=== PATIENT | female | born 1995 | race Caucasian/White ===

== ENCOUNTER → 2020-08-03 | Outpatient (CLI) | payer OTHER ==
--- NOTE | 2020-08-03 08:38 | US ---
EXAMINATION TYPE: Ultrasound OB <= 14 week fetus DATE OF EXAM: 08/03/2020 8:07 AM COMPARISON: NONE CLINICAL HISTORY: 25-year-old female Z36 Confirm Dates and assess Viability. EXAM PERFORMED: Transabdominal (TA) FINDINGS: EXAM MEASUREMENTS: GESTATIONAL AGE / DATING Physician Established: Not yet established Dates by LMP: LMP unknown Dates by First Scan: No previous this is first scan Dates by Current Scan for: (13 weeks/1 days) EDC: 02/07/2021 MATERNAL ANATOMY Uterus: 15 x 7.3 x 9.1 cm Right Ovary: Obscured by bowel gas Left Ovary: 3.6 x 2.1 x 2.1 cm Post CDS / Adnexa: wnl Presence of free fluid: no Presence of corpus luteal cyst: no Presence of subchorionic bleed: no GESTATION / SURVEY CRL: 6.93 cm (13 weeks/1 days) Heart Rate: 171 bpm Rhythm: Normal IUP: Viable IUP Beta HcG (if available): Not available at this time Oval hypoechoic areas along the anterior uterine fundus measuring 4.7 cm. amnion shows near-com plete fusion with the chorion at this time. IMPRESSION: 1. Single live intrauterine with gestational age of 13 weeks 1 day by crown-rump length. 2. Suspect underlying fundal fibroids measuring up to 4.7 cm in size. 3. heart rate upper limits of normal at 171 BPM. Short interval follow-up can be considered. 4. Otherwise, complete survey recommended at 18-20 weeks.
[2020-08-03 09:25] LABS: HCT 37.6 % (34.0-46.0); HGB 12.9 gm/dL (11.4-16.0); MCH 31.4 pg (25.0-35.0); MCHC 34.3 g/dL (31.0-37.0); MCV 91.3 fL (80.0-100.0); Mean Platelet Volume 8.5; Platelet Count 233 k/uL (150-450); RBC 4.12 m/uL (3.80-5.40); RDW 11.8 % (11.5-15.5); WBC 8.5 k/uL (3.8-10.6)
[2020-08-03 09:40] LABS: African American GFR (CKD) >90 (>60 ml/min/1.73 sqM); Glucose 87 mg/dL (74-99); Non-African American GFR(CKD) >90 (>60 ml/min/1.73 sqM)
[2020-08-03 16:03] LABS: Hepatitis B Surface Antigen Non-Reactive (Non-Reactive)
[2020-08-03 19:11] LABS: HIV 2 AB Non-Reactive (Non-Reactive); HIV AB P24 Non-Reactive (Non-Reactive); HIV P24 AG Non-Reactive (Non-Reactive)
== END | disposition home or self-care (01) ==
LOC: RADUSWWP 07:51
PROVIDERS: ATTEND Obstetrics & Gynecology
DX: Z36.87 Encounter for antenatal screening for uncertain dates (principal); Z34.01 Encounter for supervision of normal first pregnancy, first trimester; Z3A.13 13 weeks gestation of pregnancy
CPT/HCPCS: 76801; 82565; 82947; 85027; 86762; 86780; 86850; 86900; 86901; 87340; 87390

== ENCOUNTER 2021-02-03 15:56 | Inpatient (IN) | payer OTHER ==
[2021-02-03] MEDS ORDERED: DINOPROSTONE 10 MG INSERT.ER VAGINAL ONE (16:06)
--- NOTE | 2021-02-03 16:59 | P.HPOB ---
History of Present Illness H&P Date: 02/03/21 Chief Complaint: Induction for SGA This patient is a pleasant 25-year-old 1 para 0 female estimated date of confinement 02/08/2021 estimated gestational age 39-2/7 weeks who presents to labor and delivery for two-stage induction of labor secondary to small for gestational age. Patient had ultrasound done at 35 weeks which showed her to be at the 22nd percentile with normal EDDIE. Patient had a repeat ultrasound which showed her to have some interval growth lagging 3 weeks behind therefore I recommended proceed with delivery at this time. Patient's been followed nonstress tests which been reassuring. is otherwise been uncomplicated. Review of Systems Genitourinary: Reports Menstruation: Reports amenorrhea Past Medical History Past Medical History: No Reported History History of Any Multi-Drug Resistant Organisms: None Reported Past Surgical History: No Surgical Hx Reported Past Anesthesia/Blood Transfusion Reactions: No Reported Reaction Past Psychological History: No Psychological Hx Reported Smoking Status: Never smoker Past Alcohol Use History: None Reported Past Drug Use History: None Reported - Past Family History Father History Unknown: Yes Medications and Allergies Home Medications Medication Instructions Recorded Confirmed Type No Known Home Medications 02/03/21 02/03/21 History Allergies Allergy/AdvReac Type Severity Reaction Status Date / Time methylphenidate Allergy Anaphylaxis Verified 02/03/21 16:06 [From [facility]] Exam Vital Signs Temp Pulse Resp BP 02/03/21 16:33 97.0 F L 92 16 114/64 Intake and Output 02/03/21 02/03/21 02/03/21 06:59 14:59 22:59 Other: Weight 84.368 kg - OBG Physical Exam Abdomen: bowel sounds normal, no diffuse tenderness, no bruit present, no guarding noted, no hepatomegaly, no splenomegaly, no mass Vulva: both: normal Vagina: normal moisture, no discharge Cervix: no lesion (Cervix is closed and thick and uneffaced), no discharge Uterus: enlarged (Fundal height 38 cm) Results blood work shows she is B+, rubella immune, RPR nonreactive, hepatitis B negative, HIV is nonreactive, quad screen was negative, group B strep was negative, Glucola was normal, growth ultrasounds as above. Estimated weight is 66-1/2 pounds. Assessment and Plan Assessment: This is a pleasant 25-year-old 1 para 0 female 39-2/7 weeks gestation with small for gestational age fetus who presents for induction. Patient does have an unfavorable cervix and therefore we'll proceed with Cervidil placement and Pitocin induction tomorrow. (1) Small for gestational age fetus Current Visit: Yes Status: Acute Code(s): EMQ5740 - SNOMED Code(s): 637901374 (2) Elective induction of labor planned Current Visit: Yes Status: Acute Code(s): [id number] - SNOMED Code(s): 003636691
[2021-02-04] MEDS ORDERED: OXYTOCIN 10 UNIT/ML 1 ML VIAL IM PRN (04:32)
[2021-02-04] MEDS ORDERED: OXYTOCIN 30 UNITS/500 ML NS 30 UNIT in SALINE 1 500ML.BAG IV SCH ×2 (04:32→17:00)
[2021-02-04] MEDS ORDERED: LIDOCAINE 0.5% (PF) 5 MG/ML (50 ML SDV) SQ PRN (04:32)
[2021-02-04] MEDS ORDERED: CARBOPROST TROMETHAMINE 250 MCG/ML 1 ML AMP IM PRN (04:32)
[2021-02-04] MEDS ORDERED: METHYLERGONOVINE 0.2 MG/ML 1 ML AMP IM PRN (04:32)
[2021-02-04] MEDS ORDERED: TERBUTALINE 1 MG/ML VIAL SQ PRN (04:32)
[2021-02-04] MEDS: LACTATED RINGERS 1,000 ML IV SCH ×3 (05:50→13:30)
[2021-02-04 06:15] LABS: Basophils % (A) 0 %; Eosinophils # (A) 0.1 k/uL (0-0.7); Eosinophils % (A) 2 %; HCT 37.9 % (34.0-46.0); HGB 13.2 gm/dL (11.4-16.0); Lymphocytes # (A) 1.9 k/uL (1.0-4.8); Lymphocytes % (A) 22 %; MCH 31.5 pg (25.0-35.0); MCHC 34.7 g/dL (31.0-37.0); MCV 90.7 fL (80.0-100.0); Mean Platelet Volume 9.7; Monocytes # (A) 0.7 k/uL (0-1.0); Monocytes % (A) 8 %; Neutrophils # (A) 5.9 k/uL (1.3-7.7); Neutrophils % (A) 67 %; Platelet Count 193 k/uL (150-450); RBC 4.18 m/uL (3.80-5.40); RDW 13.4 % (11.5-15.5); WBC 8.7 k/uL (3.8-10.6)
--- NOTE | 2021-02-04 06:22 | P.PN ---
Progress Note - Text Progress Note Date: 02/04/21 Cervidil was removed this morning cervix is fingertip and thick but artificial rupture membranes is performed for clear fluid. We'll proceed with Pitocin induction of labor. heart tones category 1.
[2021-02-04] MEDS: BUTORPHANOL 1 MG/ML 1 ML VIAL IV PRN ×2 (09:03→11:16)
[2021-02-04] MEDS ORDERED: ROPIVACAINE 100 MG, fentaNYL (PF). 200 MCG in SODIUM CHLORIDE 0.9% 76 ML EPIDURAL ONE (13:45)
[2021-02-04] MEDS ORDERED: SIMETHICONE 80 MG CHEWABLE PO PRN (16:50)
[2021-02-04] MEDS ORDERED: LANOLIN CREAM 5 GM TUBE TOPICAL PRN (16:50)
[2021-02-04] MEDS ORDERED: ZOLPIDEM 5 MG TAB PO PRN (16:50)
[2021-02-04] MEDS ORDERED: diphenhydrAMINE 50 MG/ML 1 ML VIAL IVP PRN (16:50)
[2021-02-04] MEDS ORDERED: diphenhydrAMINE 25 MG CAP PO PRN (16:50)
[2021-02-04] MEDS ORDERED: ACETAMINOPHEN TAB 325 MG TAB PO PRN (16:50)
[2021-02-04] MEDS ORDERED: bisacodyL 10 MG SUPP RECTAL PRN (16:50)
[2021-02-04] MEDS ORDERED: HYDROCORTISONE 2.5% RECTAL CREAM 30 GM TUBE RECTAL PRN (16:50)
[2021-02-04] MEDS ORDERED: BENZOCAINE/MENTHOL SPRAY 1 GM/SPRAY AEROSOL TOPICAL PRN (16:50)
--- NOTE | 2021-02-04 17:00 | P.PROBDLV ---
Vaginal Delivery Note - . Vaginal Delivery Note: Normal vaginal delivery viable female Apgars 8 and 9 delivery time is 1627 hrs. Please see dictated H&P for intimate details of this patient's admission. Brief summary this is a pleasant 25-year-old 1 para 0 female estimated gestational age 39 and 2/7 weeks gestation who is admitted to labor and delivery last evening for two-stage induction of labor secondary to small for gestational age and unfavorable cervix. Patient has Cervidil placed and this morning her cervix is fingertip and thick. Has artificial rupture membranes for clear fluid at that time. heart tones are category 1. Labor is induced with Pitocin at this time per protocol. Patient's labor progresses and she received 2 doses of Stadol and then an epidural for pain control. Patient thereafter progresses quite quickly gets to complete. She pushes for approximately 25 minutes pushes the head to the perineum. Posterior perineum is supported and we have controlled delivery of the 's head over the intact perineum. Mouth and nares are bulb suctioned. There is no evidence of a nuchal cord. With gentle downward traction we then have delivery the anterior and posterior shoulder and rest this infant's body. This is a vigorous viable female infant Apgars are 8 and 9 delivery time was 1627 hrs. After delivery of the the infant is laid on the mother's abdomen. The umbilical cord is allowed to quit pulsating is then doubly clamped and cut appears to be trivascular. Placenta is then spontaneously delivered intact. Estimated blood loss approximately 250 mL. Inspection of perineum shows a first-degree laceration was repaired with 3-0 Vicryl in the usual fashion excellent reapproximation is noted. All counts correct 3. There are no complications. Infant and mother stable delivery room.
[2021-02-04 23:36] VITALS: RESP 16
[2021-02-05] MEDS: IBUPROFEN 600 MG TAB PO PRN ×3 (02:26→19:55)
--- NOTE | 2021-02-05 05:47 | P.PNOBGVD ---
Subjective - Subjective Patient reports: Reports appetite normal, Reports voiding normally, Reports pain well controlled, Reports ambulating normally : doing well Objective - Latest Vital Signs Latest vital signs: Vital Signs Temp Pulse Resp BP 02/05/21 04:00 97.8 F 90 16 106/65 02/04/21 23:00 98.3 F 99 16 94/65 02/04/21 18:45 98.1 F 98 18 116/65 02/04/21 18:15 98.3 F 98 18 115/55 02/04/21 17:45 100 119/56 02/04/21 17:30 97.8 F 100 18 112/58 02/04/21 17:15 107 H 115/61 02/04/21 17:00 98.3 F 98 18 117/58 02/04/21 16:45 98.5 F 73 18 116/64 Intake and Output 02/04/21 02/04/21 02/05/21 14:59 22:59 06:59 Intake Total 10.25 Output Total 400 Balance -389.75 Intake: Intake, IV Titration 10.25 Amount Oxytocin 30 Units/500 ml 10.25 Ns 30 unit In Saline 1 500ml.bag @ Per Protocol IV .Q0M CAROLYN Rx#:[id number] Output: Estimated Blood Loss 400 Other: # Voids 1 1 - Exam Lungs: bilateral: normal Chest: Normal S1, Normal S2 Extremities: Present: normal Abdomen: Present: normal appearance, soft Uterus: Present: normal, firm Assessment and Plan Assessment: day #1. Patient is resting without complaints and most likely will go home later today. Vital signs are stable and she is afebrile. Uterus is firm nontender and she is having normal lochia. Impression this is a normal course. Plan is to continue routine care discharge home later today. (1) Small for gestational age fetus Current Visit: Yes Status: Acute Code(s): CSL8982 - SNOMED Code(s): 908440981 (2) Elective induction of labor planned Current Visit: Yes Status: Acute Code(s): CUV4603 - SNOMED Code(s): 162962770
--- NOTE | 2021-02-05 05:52 | P.DS ---
Providers Date of admission: 02/03/21 15:56 Expected date of discharge: 02/05/21 Attending physician: Yg Anderson Primary care physician: Stated None - Discharge Diagnosis(es) (1) Small for gestational age fetus Current Visit: Yes Status: Acute (2) Elective induction of labor planned Current Visit: Yes Status: Acute Hospital Course: Please see dictated H&P for intimate details of this patient's admission. Brief summary this pleasant 25-year-old 1 para 0 female 39-2/7 weeks gestation admitted to labor and delivery for two-stage induction of labor secondary to small for gestational age. Patient is induction of labor and was on have a vaginal delivery viable female infant. Please see dictated delivery note. On day #1 patient without complaints she felt stable for discharge home follow up with me in 6 weeks. Procedures: Two-stage induction of labor and normal vaginal delivery Patient Condition at Discharge: Good Plan - Discharge Summary New Discharge Prescriptions: New Ibuprofen [Motrin] 600 mg PO Q6H PRN #30 tab PRN Reason: Pain Discharge Medication List Ibuprofen [Motrin] 600 mg PO Q6H PRN #30 tab 02/05/21 [Rx] Follow up Appointment(s)/Referral(s): Yg Anderson MD [STAFF PHYSICIAN] - 03/16/21 10:15 am Patient Instructions/Handouts: Vaginal Delivery (DC) Activity/Diet/Wound Care/Special Instructions: No intercourse or anything per vagina for 6 weeks. Please call if any fever, chills, excessive vaginal bleeding, and/or abdominal pain. Discharge Disposition: HOME SELF-CARE
[2021-02-05] MEDS: SENNOSIDES-DOCUSATE SODIUM 1 EACH TAB PO PRN ×2 (12:03→19:55)
[2021-02-06] MEDS: IBUPROFEN 600 MG TAB PO PRN ×2 (01:53→08:13)
[2021-02-06 08:24] VITALS: BP 111/73; PULSE 75; TEMP 98.4
== END 2021-02-06 10:40 | disposition home or self-care (01) | DRG 807 ==
LOC: 4FBP 15:56
PROVIDERS: ADMIT Obstetrics & Gynecology; ATTEND Obstetrics & Gynecology
PROC: 10E0XZZ Delivery of Products of Conception, External Approach (ICD-10-PCS; principal; 2021-02-04)
PROC: 0HQ9XZZ Repair Perineum Skin, External Approach (ICD-10-PCS; 2021-02-04)
DX: O36.5930 Maternal care for other known or suspected poor fetal growth, third trimester, not applicable or unspecified (principal); Z37.0 Single live birth; O70.0 First degree perineal laceration during delivery; Z3A.39 39 weeks gestation of pregnancy
CPT/HCPCS: 85025; 86850; 86900; 86901; 88307

== ENCOUNTER 2021-03-11 06:28 | Emergency (ER) | payer OTHER ==
[2021-03-11] MEDS ORDERED: ONDANSETRON 4 MG/2 ML VIAL IVP STA (06:57)
[2021-03-11] MEDS ORDERED: SODIUM CHLORIDE 0.9% 1,000 ML IV STA (06:57)
[2021-03-11] MEDS ORDERED: ACETAMINOPHEN TAB 500 MG TAB PO STA (06:58)
[2021-03-11] MEDS ORDERED: PANTOPRAZOLE 40 MG/10 ML VIAL IVP STA (06:58)
--- NOTE | 2021-03-11 07:19 | ED ---
Abdominal Pain HPI - General Chief Complaint: Abdominal Pain Stated Complaint: abd pain Time Seen by Provider: 03/11/21 06:51 Source: patient Mode of arrival: ambulatory Limitations: no limitations - History of Present Illness Initial Comments: 25-year-old female presents to emergency Department with a chief complaint of abdominal pain. Patient reports symptoms began yesterday located right upper quadrant region with some radiation across the abdomen. Patient states she is concerned for gallbladder. She has not had an ultrasound on prior to this. States the pain is usually postprandial. This is benign going for quite sometime now. Patient reports it feels like another "gallbladder attack". She denies any urinary or vaginal symptoms. Denies any diarrhea but does report one episode of vomiting. - Related Data Previous Rx's Medication Instructions Recorded Ibuprofen [Motrin] 600 mg PO Q6H PRN #30 tab 02/05/21 Allergies Allergy/AdvReac Type Severity Reaction Status Date / Time methylphenidate Allergy Anaphylaxis Verified 03/11/21 06:47 [From [facility]] Review of Systems ROS Statement: Those systems with pertinent positive or pertinent negative responses have been documented in the HPI. ROS Other: All systems not noted in ROS Statement are negative. Past Medical History Past Medical History: No Reported History History of Any Multi-Drug Resistant Organisms: None Reported Past Surgical History: No Surgical Hx Reported Past Anesthesia/Blood Transfusion Reactions: No Reported Reaction Past Psychological History: No Psychological Hx Reported Smoking Status: Never smoker Past Alcohol Use History: None Reported Past Drug Use History: None Reported - Past Family History Father History Unknown: Yes General Exam Limitations: no limitations General appearance: alert, in no apparent distress Head exam: Present: atraumatic, normocephalic, normal inspection Eye exam: Present: normal appearance, PERRL, EOMI Pupils: Present: normal accommodation ENT exam: Present: normal exam, normal oropharynx, mucous membranes moist Neck exam: Present: normal inspection, full ROM. Absent: tenderness, lymphadenopathy Respiratory exam: Present: normal lung sounds bilaterally. Absent: respiratory distress, wheezes, rales, rhonchi, stridor, chest wall tenderness, accessory muscle use Cardiovascular Exam: Present: regular rate, normal rhythm, normal heart sounds. Absent: systolic murmur, diastolic murmur GI/Abdominal exam: Present: soft, tenderness (Right upper quadrant tenderness), normal bowel sounds. Absent: distended, guarding, rebound, rigid Extremities exam: Present: normal inspection, full ROM, normal capillary refill. Absent: tenderness, pedal edema, joint swelling Back exam: Present: normal inspection, full ROM. Absent: tenderness, CVA tenderness (R) Neurological exam: Present: alert, oriented X3 Psychiatric exam: Present: normal affect, normal mood Skin exam: Present: warm, dry, intact, normal color Course Vital Signs 03/11/21 03/11/21 06:43 08:09 Temperature 97.7 F 98 F Pulse Rate 77 68 Respiratory 18 16 Rate Blood Pressure 124/84 133/85 O2 Sat by Pulse 99 100 Oximetry Medical Decision Making - Medical Decision Making 25-year-old male presents to emergency department with chief complaint of abdominal pain. On physical examination, right upper quadrant tenderness. Ult rasound shows no acute cholecystitis, however there is gallbladder distention with small gallstones. I did recommend admission with a surgical consult for the patient, she declined. States she would rather follow up with outpatient basis. Rest of the laboratory work is unremarkable. Return parameters were thoroughly discussed the patient was understanding and agreeable. Case discussed with Dr. Tyson. - Lab Data Result diagrams: 03/11/21 07:27 03/11/21 07:27 Lab Results 03/11/21 03/11/21 Range/Units 07:27 07:27 WBC 11.1 H (3.8-10.6) k/uL RBC 4.56 (3.80-5.40) m/uL Hgb 14.1 (11.4-16.0) gm/dL Hct 41.3 (34.0-46.0) % MCV 90.6 (80.0-100.0) fL MCH 30.9 (25.0-35.0) pg MCHC 34.1 (31.0-37.0) g/dL RDW 12.7 (11.5-15.5) % Plt Count 228 (150-450) k/uL MPV 7.9 Neutrophils % 73 % Lymphocytes % 18 % Monocytes % 5 % Eosinophils % 3 % Basophils % 1 % Neutrophils # 8.0 H (1.3-7.7) k/uL Lymphocytes # 1.9 (1.0-4.8) k/uL Monocytes # 0.6 (0-1.0) k/uL Eosinophils # 0.3 (0-0.7) k/uL Basophils # 0.1 (0-0.2) k/uL Sodium 141 (137-145) mmol/L Potassium 4.3 (3.5-5.1) mmol/L Chloride 106 (98-107) mmol/L Carbon Dioxide 31 H (22-30) mmol/L Anion Gap 4 mmol/L BUN 17 (7-17) mg/dL Creatinine 0.74 (0.52-1.04) mg/dL Est GFR (CKD-EPI)AfAm >90 (>60 ml/min/1.73 sqM) Est GFR (CKD-EPI)NonAf >90 (>60 ml/min/1.73 sqM) Glucose 105 H (74-99) mg/dL Calcium 9.7 (8.4-10.2) mg/dL Total Bilirubin 0.4 (0.2-1.3) mg/dL AST 36 (14-36) U/L ALT 27 (4-34) U/L Alkaline Phosphatase 98 (38-126) U/L Total Protein 7.0 (6.3-8.2) g/dL Albumin 4.3 (3.5-5.0) g/dL Lipase 130 (23-300) U/L Disposition Clinical Impression: Biliary colic, Nausea & vomiting Disposition: HOME SELF-CARE Condition: Stable Instructions (If sedation given, give patient instructions): Biliary Colic (ED), Laparoscopic Cholecystectomy (DC) Additional Instructions: Follow-up with a surgeon. Return to emergency department if symptoms worsen. Is patient prescribed a controlled substance at d/c from ED?: No Referrals: Marissa Hinkle DO [Primary Care Provider] - 1-2 days Simone Hernandez MD [Medical Doctor] - 1-2 days Time of Disposition: 08:35
[2021-03-11 07:39] LABS: Basophils # (A) 0.1 k/uL (0-0.2); Basophils % (A) 1 %; Eosinophils # (A) 0.3 k/uL (0-0.7); Eosinophils % (A) 3 %; HCT 41.3 % (34.0-46.0); HGB 14.1 gm/dL (11.4-16.0); Lymphocytes # (A) 1.9 k/uL (1.0-4.8); Lymphocytes % (A) 18 %; MCH 30.9 pg (25.0-35.0); MCHC 34.1 g/dL (31.0-37.0); MCV 90.6 fL (80.0-100.0); Mean Platelet Volume 7.9; Monocytes # (A) 0.6 k/uL (0-1.0); Monocytes % (A) 5 %; Neutrophils % (A) 73 %; Platelet Count 228 k/uL (150-450); RBC 4.56 m/uL (3.80-5.40); RDW 12.7 % (11.5-15.5); WBC 11.1 k/uL (3.8-10.6)
[2021-03-11 07:57] LABS: ALT 27 U/L (4-34); AST 36 U/L (14-36); African American GFR (CKD) >90 (>60 ml/min/1.73 sqM); Albumin 4.3 g/dL (3.5-5.0); Alkaline Phosphatase 98 U/L (38-126); Anion Gap 4 mmol/L; Blood Urea Nitrogen 17 mg/dL (7-17); Calcium 9.7 mg/dL (8.4-10.2); Carbon Dioxide 31 mmol/L (22-30); Chloride 106 mmol/L (98-107); Glucose 105 mg/dL (74-99); Lipase 130 U/L (23-300); Non-African American GFR(CKD) >90 (>60 ml/min/1.73 sqM); Potassium 4.3 mmol/L (3.5-5.1); Sodium 141 mmol/L (137-145); Total Bilirubin 0.4 mg/dL (0.2-1.3)
[2021-03-11] MEDS ORDERED: KETOROLAC 15 MG/ML 1 ML VIAL IVP STA (07:57)
[2021-03-11 08:11] VITALS: TEMP 98
--- NOTE | 2021-03-11 08:13 | US ---
EXAMINATION TYPE: US gallbladder DATE OF EXAM: 03/11/2021 COMPARISON: NONE CLINICAL HISTORY: rug tenderness. 1 month . C/O RUQ pain postprandially. Last ate 3:30 this am. EXAM MEASUREMENTS: Liver Length: 17.5 cm Gallbladder Wall: 0.2 cm CBD: 0.1 cm Right Kidney: 12.0 x 5.8 x 4.2 cm Pancreas: The tail of the pancreas is not well visualized due to overlying bowel gas. Liver: wnl Gallbladder: Enlarged GB with Multiple small, gravel-like stones. GB = 10.8 x 4.5 x 4.2 cm Evidence for sonographic Urbina's sign: Yes CBD: wnl Right Kidney: No hydronephrosis or masses seen IMPRESSION: 1. Distended gallbladder with multiple small gallstones. No gallbladder wall thickening. No perichole cystic fluid. Urbina sign is positive. Surgical evaluation is recommended. 2. The tail of the pancreas is poorly visualized.
[2021-03-11 08:34] LABS: Appearance,Urine Clear (Clear); Bilirubin,Urine Negative (Negative); Blood,Urine Moderate (Negative); Color,Urine Yellow; Glucose,Urine (UA) Negative (Negative); Ketones,Urine Negative (Negative); Leukocyte Esterase,Urine Large (Negative); Mucus,Urine Occasional /hpf; Nitrite,Urine Negative (Negative); PH, Urine 5.5 (5.0-8.0); Protein,Urine Negative (Negative); RBC,Urine 3 /hpf (0-5); Specific Gravity,Urine 1.026 (1.001-1.035); Squamous Epithelial Cell,Urine 5 /hpf (0-4); Urobilinogen,Urine <2.0 mg/dL (<2.0); WBC,Urine 22 /hpf (0-5)
[2021-03-11 08:47] VITALS: BP 121/78; PULSE 61; RESP 18
== END 2021-03-11 08:46 | disposition home or self-care (01) ==
LOC: EC 06:28
DX: K80.50 Calculus of bile duct without cholangitis or cholecystitis without obstruction (principal)
CPT/HCPCS: 36415; 80053; 83690; 85025; 81001; 81025; 87086; 76705; 99284; 96374; 96375 ×2; 96361; J2405; J1885; C9113

== ENCOUNTER 2021-03-23 08:43 | Day surgery (SDC) | payer OTHER ==
[2021-03-19 12:01] VITALS: BMI 31.2
[~2021-03-23 08:43] MED LIST: ACETAMINOPHEN TAB 500 MG TAB PO PRN; DEXAMETHASONE SOD PHOSPHATE 4 MG/ML 1 ML VIAL IV ONE; HEPARIN SODIUM,PORCINE/PF 5,000 UNIT/0.5 ML SYRINGE SQ PRN; HYDROmorphone 0.5 MG/0.5 ML SYRINGE IVP PRN; LACTATED RINGERS 1,000 ML IV SCH; MIDAZOLAM 2 MG/2 ML VIAL IV PRN; ONDANSETRON 4 MG/2 ML VIAL IVP ONE; SCOPOLAMINE 1.5MG/72HR PATCH TRANSDERM ONE
[2021-03-23 09:24] VITALS: RESP 16
[2021-03-23] MEDS ORDERED: LIDOCAINE 1% (10MG/ML) FOR IV START INTRADERMA ONE (09:36)
--- NOTE | 2021-03-23 10:23 | P.GSHP ---
History of Present Illness H&P Date: 03/23/21 Chief Complaint: right upper quadrant pain t this is a 25-year-old female dissected with rectal pain. Her recent ultrasound shows evidence of cholelithiasis. She presents today for lapa laparoscopic cholecystectomy Past Medical History Past Medical History: No Reported History Additional Past Medical History / Comment(s): GALLBLADDER DISORDER History of Any Multi-Drug Resistant Organisms: None Reported Past Surgical History: No Surgical Hx Reported Past Anesthesia/Blood Transfusion Reactions: No Reported Reaction Smoking Status: Never smoker - Past Family History Father History Unknown: Yes Family Medical History: No Reported History Medications and Allergies Home Medications Medication Instructions Recorded Confirmed Type No Known Home Medications 03/19/21 03/23/21 History Allergies Allergy/AdvReac Type Severity Reaction Status Date / Time methylphenidate Allergy Anaphylaxis Verified 03/23/21 09:25 [From [facility]] Surgical - Exam Vital Signs Temp Pulse Resp BP Pulse Ox 97.8 F 62 16 111/55 98 03/23/21 09:23 03/23/21 09:23 03/23/21 09:23 03/23/21 09:23 03/23/21 09:23 - General well developed, well nourished, no distress - Eyes PERRL - ENT normal pinna - Neck no masses - Respiratory normal expansion - Cardiovascular Rhythm: regular - Abdomen Abdomen: soft, non tender Assessment and Plan Plan: cholelithiasis Chronic cholecystitis We'll perform laparoscopic cholecystectomy
[2021-03-23] MEDS ORDERED: BUPIVACAINE (PF) 0.25% 30 ML VIAL SQ ONE ×2 (10:35→10:55)
[2021-03-23] MEDS ORDERED: LIDOCAINE 1% INJ 10MG/ML (20 ML MDV) ONE (10:36)
[2021-03-23] MEDS ORDERED: PROPOFOL 10 MG/ML 20 ML VIAL IV ONE (10:36)
[2021-03-23] MEDS ORDERED: GLYCOPYRROLATE 0.2 MG/ML 2 ML VIAL ONE (10:36)
[2021-03-23] MEDS ORDERED: KETOROLAC 15 MG/ML 1 ML VIAL ONE (10:36)
[2021-03-23] MEDS ORDERED: MIDAZOLAM 2 MG/2 ML VIAL ONE (10:36)
[2021-03-23] MEDS ORDERED: NEOSTIGMINE 1 MG/ML 10 ML VIAL ONE (10:36)
[2021-03-23] MEDS ORDERED: ROCURONIUM 10 MG/ML (5 ML VIAL) IV ONE (10:36)
[2021-03-23] MEDS ORDERED: HYDROmorphone (PF) 1 MG/ML ONE (10:36)
[2021-03-23] MEDS ORDERED: fentaNYL (PF) 50 MCG/ML 2 ML AMP ONE (10:36)
[2021-03-23] MEDS ORDERED: SUCCINYLCHOLINE CHLORIDE 100 MG/5 ML SYR IV ONE (10:36)
--- NOTE | 2021-03-23 11:17 | P.OP ---
Date of Procedure: 03/23/21 Preoperative Diagnosis: cholelithiasis Postoperative Diagnosis: cholelithiasis Procedure(s) Performed: laparoscopic cholecystectomy Anesthesia: TODD Surgeon: Alberto Javed Estimated Blood Loss (ml): 5 Pathology: other (gallbladder) Condition: stable Disposition: PACU Description of Procedure: The patient was placed on the operating table. The patient received a general endotracheal tube anesthesia. The patients abdomen was prepped and draped in the usual sterile fashion. Through an infraumbilical stab incision, the fascia of the anterior abdominal wall was grasped with a pair of Kochers and then the Veress needle was placed in the peritoneal cavity. Position of the Veress needle was confirmed with positive drop test. The abdomen was then insufflated. After adequate insufflation, the 10 mm trocar was placed in the peritoneal cavity. Following this the laparoscope was placed in the peritoneal cavity. The patient was placed in the head-up, right side up position and then a 5 mm trocar was placed in the right lateral and right subcostal position under direct visualization. A 8 mm trocar was placed in the epigastric position. The gallbladder was grasped in the fundus and infundibulum. Traction on the gallbladder was placed in the lateral and the cephalad positions. The triangle of Calot was visualized.. The cystic duct was bluntly dissected until the union of the cystic duct and common bile duct was seen. A critical view of safety was achieved. The cystic duct was then divided and sealed with the Harmonic scissors. A PDS Endoloop was then placed throughout the cystic duct stump. The cystic artery divided and sealed with the Harmonic scissors. The gallbladder was then removed from the liver bed using Harmonic scissors. The gallbladder was then extracted through the epigastric port site. Operative field was checked for any bleeding spots and Harmonic scissors was used to coagulate the liver bed. The abdomen was irrigated. The trocars were removed. The skin was closed using interrupted 3-0 Vicryl suture. Dermabond dressing were applied. The patient tolerated the procedure well.
[2021-03-23 11:26] VITALS: TEMP 97.6
[2021-03-23] MEDS ORDERED: LACTATED RINGERS 1,000 ML IV ONE (12:04)
[2021-03-23] MEDS ORDERED: ONDANSETRON 4 MG/2 ML VIAL ONE (12:40)
[2021-03-23] MEDS ORDERED: ONDANSETRON 4 MG/2 ML VIAL IVP ONE (12:45)
[2021-03-23] MEDS ORDERED: SCOPOLAMINE 1.5MG/72HR PATCH TRANSDERM ONE (13:35)
[2021-03-23] MEDS ORDERED: PROMETHAZINE INJ 25 MG/ML 1 ML VIAL IVPB ONE (13:42)
[2021-03-23 14:25] VITALS: BP 117/77; PULSE 67
== END 2021-03-23 14:29 | disposition home or self-care (01) ==
LOC: OR 08:43
PROVIDERS: ATTEND Surgery
DX: K81.1 Chronic cholecystitis (principal); Z88.8 Allergy status to other drugs, medicaments and biological substances
CPT/HCPCS: 81025; 88304; 47562; J2250; J1100; J2550; J2710; J0690; J2405; J2001; J3010; J1170 ×2; J1885; J0330; J2704; J1644

== ENCOUNTER → 2021-09-29 | Outpatient (CLI) | payer OTHER ==
--- NOTE | 2021-09-29 09:45 | US ---
EXAMINATION TYPE: Transabdominal DATE OF EXAM: 09/29/2021 9:07 AM COMPARISON: NONE CLINICAL HISTORY: Z36.89 ENCOUNTER FOR OTHER SPECIFIED SCR. Patient presents to confirm lexi es in early . EXAM PERFORMED: Transabdominal (TA) EXAM MEASUREMENTS: GESTATIONAL AGE / DATING Physician Established: (13 weeks/4 days) EDC: 04/02/2022 Dates by LMP: LMP unknown Dates by First Scan: No previous this is first scan Dates by Current Scan for: (12 weeks/1 days) EDC: 04/12/2022 MATERNAL ANATOMY Uterus: 15.9 x 9.3 x 9.1 Right Ovary: 2.9 x 2.5 x 2.4 Left Ovary: 3.3 x 3.1 x 3.2 Post CDS / Adnexa: WNL Presence of free fluid: No Presence of corpus luteal cyst: Not seen Presence of subchorionic bleed: No evidence of subchorionic bleed today GESTATION / SURVEY CRL: 5.41 cm (12 weeks/1 days) MSD: Visualized Yolk Sac (normal less than 6mm): Not seen; placenta noted. Heart Rate: 167 bpm Rhythm: Normal IUP: Viable IUP Age Appropriate Anatomy Cord Insertion: Visualized Limbs: Visualized Calvarium: Visualized Date of LMP: Unknown Beta HcG (if available): Not available at this time IMPRESSION: Single viable intrauterine noted.
== END | disposition home or self-care (01) ==
LOC: RADUSWWP 08:39
PROVIDERS: ATTEND Obstetrics & Gynecology
DX: Z36.89 Encounter for other specified antenatal screening (principal); Z3A.13 13 weeks gestation of pregnancy
CPT/HCPCS: 76801

== ENCOUNTER 2022-04-06 05:46 | Inpatient (IN) | payer OTHER ==
--- NOTE | 2022-04-05 07:27 | P.HPOB ---
History of Present Illness H&P Date: 04/05/22 Chief Complaint: Induction of labor for gestational diabetes and circumvallate placenta This patient is a pleasant 26-year-old 2 para 1 female estimated date of confinement 04/12/2022 estimated gestational age 39 and one sevenths weeks who presents to labor and delivery for induction of labor secondary to gestational diabetes and circumvallate placenta. Patient's history is such that at 19 weeks she was diagnosed with an circumvallate placenta and was referred to maternal- medicine. They recommended growth ultrasounds and testing is which she's been doing. Patient also had an abnormal 3 hour gtt. has been managed for gestational diabetes without medications per maternal- medicine. Per recommendations a recommend proceeding with delivery at this time. Review of Systems Genitourinary: Reports Menstruation: Reports amenorrhea Past Medical History Past Medical History: No Reported History Additional Past Medical History / Comment(s): Patient had a previous term vaginal delivery. History of Any Multi-Drug Resistant Organisms: None Reported Past Surgical History: No Surgical Hx Reported Past Anesthesia/Blood Transfusion Reactions: No Reported Reaction Smoking Status: Never smoker - Past Family History Father History Unknown: Yes Family Medical History: No Reported History Medications and Allergies Home Medications Medication Instructions Recorded Confirmed Type Acetaminophen Tab [Tylenol] 650 mg PO Q6H #30 tab 03/23/21 Rx Allergies Allergy/AdvReac Type Severity Reaction Status Date / Time methylphenidate Allergy Anaphylaxis Verified 03/23/21 09:25 [[facility]] Exam - OBG Physical Exam Abdomen: bowel sounds normal, no diffuse tenderness, no bruit present, no guarding noted, no hepatomegaly, no splenomegaly, no mass Vulva: both: normal Vagina: normal moisture, no discharge Cervix: no lesion (Cervix in the office is 1 cm dilated and effaced.), no discharge Uterus: enlarged (Fundal height is 37 cm) Results blood work shows she is B+, rubella immune, RPR is nonreactive, hepatitis B is negative, HIV is negative, Glucola was 145 with an abnormal 3 hour gtt., group B strep was negative, most recent ultrasound done on March 17 showed estimated weight at 5 lbs. 8 oz. Assessment and Plan Assessment: This is a pleasant 26-year-old 2 para 1 female 39 and one sevenths weeks gestation who presents to labor and delivery for induction of labor secondary to gestational diabetes and circumvallate placenta. Plan is Pitocin induction of labor and anticipate vaginal delivery. (1) 39 weeks gestation of Status: Acute Code(s): Z3A.39 - 39 WEEKS GESTATION OF SNOMED Code(s): 39324861 (2) Circumvallate placenta Status: Acute Code(s): O43.119 - CIRCUMVALLATE PLACENTA, UNSPECIFIED TRIMESTER SNOMED Code(s): 4272073 (3) Gestational diabetes Status: Acute Code(s): O24.419 - GESTATIONAL DIABETES MELLITUS IN , UNSP CONTROL SNOMED Code(s): 91276073
[2022-04-06] MEDS ORDERED: OXYTOCIN 10 UNIT/ML 1 ML VIAL IM PRN (06:11)
[2022-04-06] MEDS ORDERED: TERBUTALINE 1 MG/ML VIAL SQ PRN (06:11)
[2022-04-06] MEDS ORDERED: LIDOCAINE 0.5% (PF) 5 MG/ML (50 ML SDV) SQ PRN (06:11)
[2022-04-06] MEDS ORDERED: OXYTOCIN 30 UNITS/500 ML NS 30 UNIT in SALINE 1 500ML.BAG IV SCH ×2 (06:11→14:16)
[2022-04-06] MEDS ORDERED: METHYLERGONOVINE 0.2 MG/ML 1 ML AMP IM PRN (06:11)
[2022-04-06] MEDS ORDERED: ROPIVACAINE 100 MG, fentaNYL (PF). 200 MCG in SODIUM CHLORIDE 0.9% 76 ML EPIDURAL ONE (06:11)
[2022-04-06] MEDS ORDERED: CARBOPROST TROMETHAMINE 250 MCG/ML 1 ML AMP IM PRN (06:11)
[2022-04-06 06:29] LABS: Glucose,Whole Blood 84 mg/dL (70-110)
[2022-04-06] MEDS: LACTATED RINGERS 1,000 ML IV SCH ×2 (06:34→09:54)
[2022-04-06 06:36] LABS: Basophils % (A) 0 %; Eosinophils # (A) 0.1 k/uL (0-0.7); Eosinophils % (A) 1 %; HCT 39.1 % (34.0-46.0); HGB 12.7 gm/dL (11.4-16.0); Lymphocytes # (A) 2.1 k/uL (1.0-4.8); Lymphocytes % (A) 28 %; MCH 30.4 pg (25.0-35.0); MCHC 32.5 g/dL (31.0-37.0); MCV 93.6 fL (80.0-100.0); Mean Platelet Volume 10.4; Monocytes # (A) 0.6 k/uL (0-1.0); Monocytes % (A) 8 %; Neutrophils # (A) 4.4 k/uL (1.3-7.7); Neutrophils % (A) 60 %; Platelet Count 192 k/uL (150-450); RBC 4.17 m/uL (3.80-5.40); RDW 12.8 % (11.5-15.5); WBC 7.3 k/uL (3.8-10.6)
[2022-04-06] MEDS ORDERED: BENZOCAINE/MENTHOL SPRAY 1 GM/SPRAY AEROSOL TOPICAL PRN (14:16)
[2022-04-06] MEDS ORDERED: LANOLIN CREAM 5 GM TUBE TOPICAL PRN (14:16)
[2022-04-06] MEDS ORDERED: bisacodyL 10 MG SUPP RECTAL PRN (14:16)
[2022-04-06] MEDS ORDERED: SIMETHICONE 80 MG CHEWABLE PO PRN (14:16)
[2022-04-06] MEDS ORDERED: ZOLPIDEM 5 MG TAB PO PRN (14:16)
[2022-04-06] MEDS ORDERED: diphenhydrAMINE 25 MG CAP PO PRN (14:16)
[2022-04-06] MEDS ORDERED: HYDROCORTISONE 2.5% RECTAL CREAM 30 GM TUBE RECTAL PRN (14:16)
[2022-04-06] MEDS ORDERED: diphenhydrAMINE 50 MG/ML 1 ML VIAL IVP PRN (14:16)
--- NOTE | 2022-04-06 17:03 | P.PROBDLV ---
Vaginal Delivery Note - . Vaginal Delivery Note: Normal vaginal delivery viable male infant Apgars are 7 and 9 at 1401 hrs. Please see dictated H&P for intimate details of this patient's admission. Brief summary this is a pleasant 26-year-old 2 para 1 female 39 and one sevenths weeks gestation admitted to labor and delivery for induction of labor secondary to gestational diabetes and circumvallate placenta. Patient is admitted she is 2 cm dilated is artificial rupture membranes for clear fluid. Labor is induced with Pitocin. Patient does request an epidural for pain control and gets some relief but unfortunately still is quite uncomfortable. Patient progresses quickly pushed the head to the perineum. Posterior perineum is supported we have controlled delivery of the infant's head over the intact perineum. Infant's presentation straight occiput posterior presentation. Mouth and nares are bulb suctioned. There is a loose nuchal cord which is reduced. Infant then spontaneously delivers the anterior and posterior shoulder and rest this 's body. This is a vigorous viable male Apgars are 7 and 9 delivery time was 1401 hrs. After delivery of the is laid on the mother's abdomen. The cord is done pulsating is doubly clamped and cut. The placenta is then spontaneously delivered intact. Inspection of the perineum shows a first-degree laceration was repaired with 3-0 Vicryl usual fashion. There are no complications. All counts correct 3. Estimated blood loss is 200 mL.
[2022-04-06] MEDS: SENNOSIDES-DOCUSATE SODIUM 1 EACH TAB PO SCH ×2 (18:08→21:29)
[2022-04-06] MEDS: ACETAMINOPHEN TAB 325 MG TAB PO PRN (21:29)
[2022-04-06] MEDS: IBUPROFEN 600 MG TAB PO PRN (23:15)
--- NOTE | 2022-04-07 05:59 | P.PNOBGVD ---
Subjective - Subjective Patient reports: Reports appetite normal, Reports voiding normally, Reports pain well controlled, Reports ambulating normally : doing well Objective - Latest Vital Signs Latest vital signs: Vital Signs Temp Pulse Resp BP Pulse Ox 04/07/22 00:00 97.5 F L 85 14 122/79 98 04/06/22 20:00 98.2 F 79 14 105/70 97 04/06/22 16:22 97.6 F 82 16 116/62 99 04/06/22 16:00 89 16 114/57 04/06/22 15:51 79 16 111/60 04/06/22 15:22 97.5 F L 83 16 117/59 04/06/22 15:07 97.5 F L 88 16 125/65 04/06/22 14:52 97 16 117/65 04/06/22 14:37 97 16 110/55 04/06/22 14:22 98.4 F 88 16 126/54 04/06/22 06:14 96.7 F L 76 18 132/69 98 Intake and Output 04/06/22 04/06/22 04/07/22 14:59 22:59 06:59 Intake Total 282.033 Output Total 200 360 Balance 82.033 -360 Intake: Intake, IV Titration 182.033 Amount Oxytocin 30 Units/500 ml 182.033 Ns 30 unit In Saline 1 500ml.bag @ Per Protocol IV .Q0M [facility] Rx#:[id number] Oral 100 Output: Estimated Blood Loss 200 200 Output, Quantitative 160 Blood Loss Other: # Voids 0 2 2 - Exam Lungs: bilateral: normal Chest: Normal S1, Normal S2 Extremities: Present: normal Abdomen: Present: normal appearance, soft Uterus: Present: normal, firm Assessment and Plan Assessment: day #1. Patient is resting without complaints and wishes to go home. Vital signs are stable she's afebrile. Uterus is firm nontender she's having normal lochia. My impression this is a normal course. Plan is to continue routine care, check a CBC, discharge home later today (1) 39 weeks gestation of Current Visit: No Status: Acute Code(s): Z3A.39 - 39 WEEKS GESTATION OF SNOMED Code(s): 75690880 (2) Circumvallate placenta Current Visit: No Status: Acute Code(s): O43.119 - CIRCUMVALLATE PLACENTA, UNSPECIFIED TRIMESTER SNOMED Code(s): 7407594 (3) Gestational diabetes Current Visit: No Status: Acute Code(s): O24.419 - GESTATIONAL DIABETES MELLITUS IN , UNSP CONTROL SNOMED Code(s): 96148505
--- NOTE | 2022-04-07 06:03 | P.DS ---
Providers Date of admission: 04/06/22 05:46 Expected date of discharge: 04/07/22 Attending physician: gY Anderson Primary care physician: Marissa Hinkle - Discharge Diagnosis(es) (1) 39 weeks gestation of Current Visit: No Status: Acute (2) Circumvallate placenta Current Visit: No Status: Acute (3) Gestational diabetes Current Visit: No Status: Acute Hospital Course: Please see dictated H&P for intimate details of this patient's admission. Brief summary this is a pleasant 26-year-old 2 para 1 female estimated gestational age 39 and one sevenths weeks who is admitted to labor and delivery for induction of labor secondary to gestational diabetes and circumvallate placenta. Patient is admitted she is uncomplicated induction of labor was on have a vaginal delivery viable male . Please see dictated delivery note. day #1 patient's doing well wishes to go home. Patient's felt be stable for discharge home follow up with me in 6 weeks. Procedures: Induction of labor and normal vaginal delivery Patient Condition at Discharge: Good Plan - Discharge Summary New Discharge Prescriptions: New Ibuprofen [Motrin] 600 mg PO Q6HR PRN #30 tab PRN Reason: Mild Pain (Scale 1 To 3) No Action Aspirin [Adult Low Dose Aspirin EC] 81 mg PO DAILY Vit No.179/Iron/Folic [ Tablet] 1 each PO DAILY Discharge Medication List Aspirin [Adult Low Dose Aspirin EC] 81 mg PO DAILY 04/06/22 [History] Vit No.179/Iron/Folic [ Tablet] 1 each PO DAILY 04/06/22 [History] Ibuprofen [Motrin] 600 mg PO Q6HR PRN #30 tab 04/07/22 [Rx] Follow up Appointment(s)/Referral(s): Yg Anderson MD [STAFF PHYSICIAN] - 05/19/22 11:15 am Patient Instructions/Handouts: Vaginal Delivery (DC) Activity/Diet/Wound Care/Special Instructions: No intercourse or anything per vagina for 6 weeks. Please call if any fever, chills, excessive vaginal bleeding, and/or abdominal pain. Discharge Disposition: HOME SELF-CARE
[2022-04-07 06:53] LABS: Basophils % (A) 0 %; Eosinophils # (A) 0.1 k/uL (0-0.7); Eosinophils % (A) 1 %; HGB 11.4 gm/dL (11.4-16.0); Lymphocytes # (A) 1.9 k/uL (1.0-4.8); Lymphocytes % (A) 16 %; MCH 31.7 pg (25.0-35.0); MCHC 33.4 g/dL (31.0-37.0); MCV 94.9 fL (80.0-100.0); Monocytes # (A) 0.7 k/uL (0-1.0); Monocytes % (A) 6 %; Neutrophils # (A) 8.5 k/uL (1.3-7.7); Neutrophils % (A) 75 %; Platelet Count 150 k/uL (150-450); RBC 3.59 m/uL (3.80-5.40); WBC 11.3 k/uL (3.8-10.6)
[2022-04-07] MEDS: ACETAMINOPHEN TAB 325 MG TAB PO PRN ×2 (07:57→14:50)
[2022-04-07] MEDS: SENNOSIDES-DOCUSATE SODIUM 1 EACH TAB PO SCH (07:57)
[2022-04-07] MEDS: IBUPROFEN 600 MG TAB PO PRN (10:56)
[2022-04-07 11:06] VITALS: RESP 18
[2022-04-07 12:23] VITALS: BP 100/68; PULSE 76; TEMP 97.7
== END 2022-04-07 16:45 | disposition home or self-care (01) | DRG 807 ==
LOC: 4FBP 05:46
PROVIDERS: ADMIT Obstetrics & Gynecology; ATTEND Obstetrics & Gynecology
PROC: 10E0XZZ Delivery of Products of Conception, External Approach (ICD-10-PCS; principal; 2022-04-06)
PROC: 0HQ9XZZ Repair Perineum Skin, External Approach (ICD-10-PCS; 2022-04-06)
PROC: 10907ZC Drainage of Amniotic Fluid, Therapeutic from Products of Conception, Via Natural or Artificial Opening (ICD-10-PCS; 2022-04-06)
PROC: 3E033VJ Introduction of Other Hormone into Peripheral Vein, Percutaneous Approach (ICD-10-PCS; 2022-04-06)
PROC: 4A0HXCZ Measurement of Products of Conception, Cardiac Rate, External Approach (ICD-10-PCS; 2022-04-06)
DX: O24.429 Gestational diabetes mellitus in childbirth, unspecified control (principal); Z37.0 Single live birth; O43.123 Velamentous insertion of umbilical cord, third trimester; O70.0 First degree perineal laceration during delivery; O43.113 Circumvallate placenta, third trimester; O69.81X0 Labor and delivery complicated by cord around neck, without compression, not applicable or unspecified; Z3A.39 39 weeks gestation of pregnancy; Z88.8 Allergy status to other drugs, medicaments and biological substances
CPT/HCPCS: 83036; 85025; 86850; 86900; 86901; 88307

== ENCOUNTER → 2022-07-15 | Outpatient (CLI) | payer OTHER ==
--- NOTE | 2022-07-15 08:30 | MR ---
EXAMINATION TYPE: MR lumbar spine wo con DATE OF EXAM: 07/15/2022 COMPARISON: NONE HISTORY: Low back pain after recent delivery with epidural April 06. Possible misplacement of epidura l. TECHNIQUE: Multiplanar, multisequence imaging of the lumbar spine is performed without IV contrast. FINDINGS: Sagittal images of the lumbar spine show vertebral body heights and alignment to appear sat isfactory. The intervertebral discs demonstrate normal heights and hydration. The conus medullaris i s low in position ending L2-L3 disc space level. No abnormal signal is seen. No suspicious clumping of the lumbosacral nerve roots identified. Adjacent epidural fat maintained. The bone marrow signal i ntensity is within normal limits. Axial images show mild facet arthropathy L4-L5 and L5-S1 levels. There is no spinal canal stenosis, neural foraminal narrowing, or evidence of nerve root compromise. Paraspinal muscle bulk is maintaine d. Posterior soft tissues appear unremarkable. IMPRESSION: Low-lying conus of uncertain clinical significance. Mild facet arthropathy lower lumbar l evels.
== END | disposition home or self-care (01) ==
LOC: RADMRIMAIN 07:11
PROVIDERS: ATTEND Family Medicine
DX: M47.817 Spondylosis without myelopathy or radiculopathy, lumbosacral region (principal)
CPT/HCPCS: 72148

== ENCOUNTER 2023-02-26 20:45 | Emergency (ER) | payer OTHER ==
[2023-02-26 21:17] VITALS: BP 112/86; PULSE 71; RESP 18; TEMP 98
--- NOTE | 2023-02-27 01:18 | US ---
EXAM: US Duplex Right Lower Extremity Veins CLINICAL HISTORY: ITS.REASON US Reason: cramping TECHNIQUE: Real-time duplex ultrasound scan of the right lower extremity veins integrating B-mode two-dimensional vascular structure, Doppler spectral analysis, color flow Doppler imaging and compression. COMPARISON: No previous studies. FINDINGS: Deep veins: Imaging of the right lower extremity deep venous system revealed no deep venous thrombosis including the right common femoral vein, right superficial femoral vein, the right popliteal vein, and the proximal calf veins. Superficial veins: Unremarkable. No thrombus in the visualized great saphenous vein. Soft tissues: Soft tissues are unremarkable. No popliteal cyst. IMPRESSION: 1. Limited evaluation of the cath is. 2. No deep venous thrombosis of the right lower extremity is detected.
--- NOTE | 2023-02-27 01:33 | ED ---
Lower Extremity Injury HPI - General Chief Complaint: Extremity Injury, Lower Stated Complaint: Right lower leg pain Time Seen by Provider: 02/26/23 22:26 Source: patient Mode of arrival: ambulatory Limitations: no limitations - History of Present Illness Initial Comments: 27-year-old female presenting with chief complaint of right lower leg pain. Pain starts in the ankle and radiates up the leg. No injury or trauma. Has been ongoing for the last week. No numbness, tingling, weakness. No history of blood clot or oral contraceptive use. No recent surgery or long travel. No chest pain or difficulty breathing. - Related Data Home Medications Medication Instructions Recorded Confirmed Aspirin [Adult Low Dose Aspirin EC] 81 mg PO DAILY 04/06/22 04/06/22 Vit No.179/Iron/Folic 1 each PO DAILY 04/06/22 04/06/22 [ Tablet] Previous Rx's Medication Instructions Recorded Ibuprofen [Motrin] 600 mg PO Q6HR PRN #30 tab 04/07/22 Allergies Allergy/AdvReac Type Severity Reaction Status Date / Time methylphenidate Allergy Severe Anaphylaxis Verified 04/06/22 06:09 [From Marian] Review of Systems ROS Statement: Those systems with pertinent positive or pertinent negative responses have been documented in the HPI. ROS Other: All systems not noted in ROS Statement are negative. Past Medical History Past Medical History: No Reported History Additional Past Medical History / Comment(s): Patient had a previous term vaginal delivery, GDM- diet History of Any Multi-Drug Resistant Organisms: None Reported Past Surgical History: Cholecystectomy Past Anesthesia/Blood Transfusion Reactions: No Reported Reaction Past Psychological History: No Psychological Hx Reported Smoking Status: Never smoker Past Alcohol Use History: None Reported Past Drug Use History: None Reported - Past Family History Father History Unknown: Yes Family Medical History: No Reported History Additional Family Medical History / Comment(s): pt adopted General Exam Limitations: no limitations General appearance: alert, in no apparent distress Head exam: Present: atraumatic, normocephalic, normal inspection Eye exam: Present: normal appearance, EOMI. Absent: scleral icterus, periorbital swelling Neck exam: Present: normal inspection, full ROM Respiratory exam: Present: normal lung sounds bilaterally. Absent: respiratory distress, wheezes, rales, rhonchi, stridor Cardiovascular Exam: Present: regular rate, normal rhythm, normal heart sounds. Absent: systolic murmur, diastolic murmur, rubs, gallop, clicks Extremities exam: Present: normal inspection, full ROM, tenderness, normal capillary refill Neurological exam: Present: alert, oriented X3, CN II-XII intact Psychiatric exam: Present: normal affect, normal mood Skin exam: Present: warm, dry, intact, normal color. Absent: rash Course Vital Signs 02/26/23 21:12 Temperature 98 F Pulse Rate 71 Respiratory 18 Rate Blood Pressure 112/86 O2 Sat by Pulse 99 Oximetry Medical Decision Making - Medical Decision Making Was pt. sent in by a medical professional or institution (, PA, DJANGO DEVELOPER, urgent care, hospital, or snf...) When possible be specific @ -No Did you speak to anyone other than the patient for history (EMS, parent, family, police, friend...)? What history was obtained from this source @ -No Did you review nursing and triage notes (agree or disagree)? Why? @ -I reviewed and agree with nursing and triage notes Were old charts reviewed (outside hosp., previous admission, EMS record, old EK G, old radiological studies, urgent care reports/EKG's, snf records)? Report findings @ -No old charts were reviewed Differential Diagnosis (chest pain, altered mental status, abdominal pain women, abdominal pain men, vaginal bleeding, weakness, fever, dyspnea, syncope, headache, dizziness, GI bleed, back pain, seizure, CVA, palpatations, mental health, musculoskeletal)? @ -Differential Musculoskeletal Muscular strain, contusion, ligament sprain, fracture, arthritis, septic arthritis, bursitis, cellulitis, muscle spasm, nerve compression, DVT, arterial occlusion, herpes zoster, electrolyte abnormality, tumor.... This is not meant to be in all inclusive list EKG interpreted by me (3pts min.). @ -As above X-rays interpreted by me (1pt min.). @ -None done CT interpreted by me (1pt min.). @ -None done U/S interpreted by me (1pt. min.). @ -Ultrasound negative for DVT What testing was considered but not performed or refused? (CT, X-rays, U/S, labs)? Why? @ -None What meds were considered but not given or refused? Why? @ -None Did you discuss the management of the patient with other professionals (professionals i.e. , PA, DJANGO DEVELOPER, lab, RT, psych nurse, director social, concrete mixing plant laborer, teacher, founder and chief executive officer, major case detective)? Give summary @ -No Was smoking cessation discussed for >3mins.? @ -No Was critical care preformed (if so, how long)? @ -No Were there social determinants of health that impacted care today? How? (Homelessness, low income, unemployed, alcoholism, drug addiction, transportation, low edu. Level, literacy, decrease access to med. care, alf, rehab)? @ -No Was there de-escalation of care discussed even if they declined (Discuss DNR or withdrawal of care, Hospice)? DNR status @ -No What co-morbidities impacted this encounter? (DM, HTN, Smoking, COPD, CAD, Cancer, CVA, ARF, Chemo, Hep., AIDS, mental health diagnosis, sleep apnea, morbid obesity)? @ -None Was patient admitted / discharged? Hospital course, mention meds given and route, prescriptions, significant lab abnormalities, going to OR and other pertinent info. @ -27-year-old female presenting with chief complaint of lower leg pain. No injury or trauma. Ultrasound negative for DVT. Patient is neurovascularly intact. Educated on supportive management. Follow-up with PCP. Report back to ER with any new or worsening symptoms. Discussed return parameters and answered all questions. Patient conveyed verbal understanding and agreed to the plan. I discussed this case in detail with my attending Dr. Gutierrez Undiagnosed new problem with uncertain prognosis? @ -No Drug Therapy requiring intensive monitoring for toxicity (Heparin, Nitro, Insulin, Cardizem)? @ -No Were any procedures done? @ -No Diagnosis/symptom? @ -Leg Pain Acute, or Chronic, or Acute on Chronic? @ -acute Uncomplicated (without systemic symptoms) or Complicated (systemic symptoms)? @ -Uncomplicated Side effects of treatment? @ -No Exacerbation, Progression, or Severe Exacerbation? @ -No Poses a threat to life or bodily function? How? (Chest pain, [place], [place], pneumonia, PE, COPD, DKA, ARF, appy, cholecystitis, CVA, Diverticulitis, Homicidal, Suicidal, threat to staff... and all critical care pts) @ -No Disposition Clinical Impression: Ankle pain Disposition: HOME SELF-CARE Condition: Good Instructions (If sedation given, give patient instructions): Arthralgia (ED) Additional Instructions: Follow-up with PCP and orthopedics. Report back to ER with any new or worsening symptoms. Take Motrin and Tylenol stated for pain control. Is patient prescribed a controlled substance at d/c from ED?: No Referrals: Marissa Hinkle DO [Primary Care Provider] - 1-2 days Cecile Ramirez NPC [Nurse Practitioner] - 1-2 days Time of Disposition: 01:33
== END 2023-02-27 01:49 | disposition home or self-care (01) ==
LOC: EC 20:45
DX: M25.571 Pain in right ankle and joints of right foot (principal); Z88.8 Allergy status to other drugs, medicaments and biological substances
CPT/HCPCS: 99283

== ENCOUNTER 2023-09-14 20:35 | Emergency (ER) | payer OTHER ==
--- NOTE | 2023-09-14 21:05 | ED ---
Abdominal Pain HPI - General Chief Complaint: Abdominal Pain Stated Complaint: Poss etopic - 9 wks Time Seen by Provider: 09/14/23 21:04 Source: patient Mode of arrival: ambulatory Limitations: no limitations - History of Present Illness Initial Comments: 28-year-old female who is approximately 9 weeks and route to the ED with a chief complaint of abdominal pain. States onset of pain 4 days ago. States pain is across her abdomen. Denies vaginal bleeding. States that she was seen at [facility] yesterday and had blood work which was unremarkable however was advised to present to the [facility] here for further evaluation as they were unable to perform an ultrasound on her last night. - Related Data Home Medications Medication Instructions Recorded Confirmed Aspirin [Adult Low Dose Aspirin EC] 81 mg PO DAILY 04/06/22 04/06/22 Vit No.179/Iron/Folic 1 each PO DAILY 04/06/22 04/06/22 [ Tablet] Previous Rx's Medication Instructions Recorded Ibuprofen [Motrin] 600 mg PO Q6HR PRN #30 tab 04/07/22 Allergies Allergy/AdvReac Type Severity Reaction Status Date / Time methylphenidate Allergy Severe Anaphylaxis Verified 09/14/23 20:53 [From Jonelletrana] Review of Systems ROS Statement: Those systems with pertinent positive or pertinent negative responses have been documented in the HPI. ROS Other: All systems not noted in ROS Statement are negative. Past Medical History Past Medical History: No Reported History Additional Past Medical History / Comment(s): Patient had a previous term vaginal delivery, GDM- diet History of Any Multi-Drug Resistant Organisms: None Reported Past Surgical History: Cholecystectomy Past Anesthesia/Blood Transfusion Reactions: No Reported Reaction Past Psychological History: No Psychological Hx Reported Smoking Status: Never smoker Past Alcohol Use History: None Reported Past Drug Use History: None Reported - Past Family History Father History Unknown: Yes Family Medical History: No Reported History Additional Family Medical History / Comment(s): pt adopted General Exam - General Exam Comments Initial Comments: Visual Physical Exam Vital signs reviewed General: Well-appearing, nontoxic, no acute distress. Head: Normocephalic, atraumatic Eyes: PERRLA, EOMI ENT: Airway patent Chest: Nonlabored breathing Skin: No visual rash, normal skin tone Neuro: Alert and oriented 3 Musculoskeletal: No gross abnormalities Limitations: no limitations General appearance: alert, in no apparent distress Respiratory exam: Present: normal lung sounds bilaterally Cardiovascular Exam: Present: regular rate, normal rhythm GI/Abdominal exam: Present: soft (Diffuse abdominal tenderness to palpation. No rebound guarding or rigidity.) Course Vital Signs 09/14/23 20:51 Temperature 98.1 F Pulse Rate 74 Respiratory 18 Rate Blood Pressure 117/71 O2 Sat by Pulse 98 Oximetry Medical Decision Making - Medical Decision Making Was pt. sent in by a medical professional or institution (, PA, SPACE SYSTEMS OPERATIONS MANAGER, urgent care, hospital, or [place] health [place] facility...) When possible be specific @ -Patient was advised by [facility] to present to our ED for further evaluation as they did not have ultrasound available during patient's initial evaluation. Did you speak to anyone other than the patient for history (EMS, parent, family, police, friend...)? What history was obtained from this source @ -No Did you review nursing and triage notes (agree or disagree)? Why? @ -I reviewed and agree with nursing and triage notes Were old charts reviewed (outside hosp., previous admission, EMS record, old EKG, old radiological studies, urgent care reports/EKG's, [place] health [place] facility records)? Report findings @ -Lab work from [facility] reviewed. For further details please see HPI. Differential Diagnosis (chest pain, altered mental status, abdominal pain women, abdominal pain men, vaginal bleeding, weakness, fever, dyspnea, syncope, headache, dizziness, GI bleed, back pain, seizure, CVA, palpatations, mental health, musculoskeletal)? @ -Differential Abdominal Pain Women: Appendicitis, Cholecystitis, diverticulosis, ischemic bowel, pancreatitis, hepatitis, UTI, gastroenteritis, AAA, incarcerated hernia, bowel obstruction, constipation, inflammatory bowel, hepatitis, peptic ulcer disease, splenic infarction, perforated viscus, vulvitis, ovarian torsion, PID, kidney stone, placenta abruption, this is not meant to be an all-inclusive list EKG interpreted by me (3pts min.). @ -None X-rays interpreted by me (1pt min.). @ -None done CT interpreted by me (1pt min.). @ -None done U/S interpreted by me (1pt. min.). @ -None done What testing was considered but not performed or refused? (CT, X-rays, U/S, labs)? Why? @ -None What meds were considered but not given or refused? Why? @ -None Did you discuss the management of the patient with other professionals (professionals i.e. Dr., PA, SPACE SYSTEMS OPERATIONS MANAGER, lab, RT, psych nurse, family welfare social work professor, optical advisor, teacher, special forces officer, correctional counselor/case manager)? Give summary @ -Discussed with Dr. Ortiz, who advised he would be happy to see the patient for outpatient follow up. Was smoking cessation discussed for >3mins.? @ -No Was critical care preformed (if so, how long)? @ -No Were there social determinants of health that impacted care today? How? (Homelessness, low income, unemployed, alcoholism, drug addiction, transportation, low edu. Level, literacy, decrease access to med. care, fdc, rehab)? @ -No Was there de-escalation of care discussed even if they declined (Discuss DNR or withdrawal of care, Hospice)? DNR status @ -No What co-morbidities impacted this encounter? (DM, HTN, Smoking, COPD, CAD, Cancer, CVA, ARF, Chemo, Hep., AIDS, mental health diagnosis, sleep apnea, morbid obesity)? @ -None Was patient admitted / discharged? Hospital course, mention meds given and route, prescriptions, significant lab abnormalities, going to OR and other p ertinent info. @ -Discharge 28-year-old female presenting to the ED with complaints of abdominal pain across her abdomen for the past 4-5 days. No urinary symptoms. No changes in bowel habits. Laboratory studies reviewed. Reviewed paperwork from [facility]. Beta hCG at this time was 13,199. UA there showed no evidence of infection. Studies performed here were reviewed. CBC and chemistry panel unremarkable. Amylase lipase unremarkable. HCG increased to 16,786. Sound shows single live IUP with a heart rate of 135 bpm measuring approximately 5-6 weeks . Also subchorionic hematoma. Discharged home in stable condition with referral to see [facility]. Discussed return precautions with patient who verbalizes agreement. Undiagnosed new problem with uncertain prognosis? @ -No Drug Therapy requiring intensive monitoring for toxicity (Heparin, Nitro, Insulin, Cardizem)? @ -No Were any procedures done? @ -No Diagnosis/symptom? @ -Abdominal pain in Acute, or Chronic, or Acute on Chronic? @ -Acute Uncomplicated (without systemic symptoms) or Complicated (systemic symptoms)? @ -Uncomplicated Side effects of treatment? @ -No Exacerbation, Progression, or Severe Exacerbation? @ -No Poses a threat to life or bodily function? How? (Chest pain, [place], [place], pneumonia, PE, COPD, DKA, ARF, appy, cholecystitis, CVA, Diverticulitis, Homicidal, Suicidal, threat to staff... and all critical care pts) @ -No - Lab Data Result diagrams: 09/14/23 21:30 09/14/23 21:30 Lab Results 09/14/23 09/14/23 09/14/23 Range/Units 21:30 21:30 21:30 WBC 7.6 (3.8-10.6) k/uL RBC 4.54 (3.80-5.40) m/uL Hgb 14.0 (11.4-16.0) gm/dL Hct 40.6 (34.0-46.0) % MCV 89.4 (80.0-100.0) fL MCH 30.9 (25.0-35.0) pg MCHC 34.6 (31.0-37.0) g/dL RDW 12.2 (11.5-15.5) % Plt Count 221 (150-450) k/uL MPV 8.5 Neutrophils % 67 % Lymphocytes % 24 % Monocytes % 6 % Eosinophils % 1 % Basophils % 1 % Neutrophils # 5.1 (1.3-7.7) k/uL Lymphocytes # 1.8 (1.0-4.8) k/uL Monocytes # 0.5 (0-1.0) k/uL Eosinophils # 0.1 (0-0.7) k/uL Basophils # 0.0 (0-0.2) k/uL PT 10.5 (10.0-12.5) sec INR 0.9 (<1.2) APTT 27.4 (22.0-30.0) sec Sodium 138 (137-145) mmol/L Potassium 3.9 (3.5-5.1) mmol/L Chloride 105 (98-107) mmol/L Carbon Dioxide 23 (22-30) mmol/L Anion Gap 10 mmol/L BUN 13 (7-17) mg/dL Creatinine 0.57 (0.52-1.04) mg/dL Est GFR (CKD-EPI)AfAm >90 (>60 ml/min/1.73 sqM) Est GFR (CKD-EPI)NonAf >90 (>60 ml/min/1.73 sqM) Glucose 84 (74-99) mg/dL Calcium 9.3 (8.4-10.2) mg/dL Total Bilirubin 0.3 (0.2-1.3) mg/dL AST 28 (14-36) U/L ALT 26 (4-34) U/L Alkaline Phosphatase 77 (38-126) U/L Total Protein 7.2 (6.3-8.2) g/dL Albumin 4.4 (3.5-5.0) g/dL Amylase 65 (30-110) U/L Lipase 108 (23-300) U/L HCG, Quant 71574.2 mIU/mL Disposition Clinical Impression: Abdominal pain Disposition: HOME SELF-CARE Condition: Good Additional Instructions: Please return to the Emergency Department if symptoms worsen or any other concerns. Follow up with [facility]. Is patient prescribed a controlled substance at d/c from ED?: No Referrals: Marissa Hinkle DO [Primary Care Provider] - 1-2 days Michael Ortiz MD [STAFF PHYSICIAN] - 1-2 days Time of Disposition: 23:45
[2023-09-14 21:12] VITALS: BP 117/71; PULSE 74; RESP 18; TEMP 98.1
[2023-09-14 21:55] LABS: Basophils % (A) 1 %; Eosinophils # (A) 0.1 k/uL (0-0.7); Eosinophils % (A) 1 %; HCT 40.6 % (34.0-46.0); Lymphocytes # (A) 1.8 k/uL (1.0-4.8); Lymphocytes % (A) 24 %; MCH 30.9 pg (25.0-35.0); MCHC 34.6 g/dL (31.0-37.0); MCV 89.4 fL (80.0-100.0); Mean Platelet Volume 8.5; Monocytes # (A) 0.5 k/uL (0-1.0); Monocytes % (A) 6 %; Neutrophils # (A) 5.1 k/uL (1.3-7.7); Neutrophils % (A) 67 %; Platelet Count 221 k/uL (150-450); RBC 4.54 m/uL (3.80-5.40); RDW 12.2 % (11.5-15.5); WBC 7.6 k/uL (3.8-10.6)
[2023-09-14 22:10] LABS: ALT 26 U/L (4-34); AST 28 U/L (14-36); African American GFR (CKD) >90 (>60 ml/min/1.73 sqM); Albumin 4.4 g/dL (3.5-5.0); Alkaline Phosphatase 77 U/L (38-126); Amylase 65 U/L (30-110); Anion Gap 10 mmol/L; Blood Urea Nitrogen 13 mg/dL (7-17); Calcium 9.3 mg/dL (8.4-10.2); Carbon Dioxide 23 mmol/L (22-30); Chloride 105 mmol/L (98-107); Glucose 84 mg/dL (74-99); Lipase 108 U/L (23-300); Non-African American GFR(CKD) >90 (>60 ml/min/1.73 sqM); Potassium 3.9 mmol/L (3.5-5.1); Sodium 138 mmol/L (137-145); Total Bilirubin 0.3 mg/dL (0.2-1.3); Total Protein 7.2 g/dL (6.3-8.2)
[2023-09-14 22:11] LABS: INR 0.9 (<1.2); Partial Thromboplastin Time 27.4 sec (22.0-30.0); Prothrombin Time 10.5 sec (10.0-12.5)
[2023-09-14 23:02] LABS: HCG,Quantitative Serum 16786.2 mIU/mL
--- NOTE | 2023-09-14 23:21 | US ---
EXAMINATION TYPE: Transabdominal ultrasound OB less than 14 weeks fetus DATE OF EXAM: 09/14/2023 9:27 PM COMPARISON: NONE CLINICAL INDICATION: Female, 28 years old with history of pain; pain x 3 days that radiates to back. . EXAM PERFORMED: Transabdominal (TA) ultrasound of the pelvis EXAM MEASUREMENTS: GESTATIONAL AGE / DATING Physician Established: Not yet established Dates by LMP: 07/09/23 (9 weeks/4 days) EDC: 04/14/24 Dates by First Scan: No previous this is first scan Dates by Current Scan for: (5 weeks/6 days) EDC: 05/10/24 MATERNAL ANATOMY Uterus: 10.2 x 8.1 x 6.3cm Right Ovary: 3.4 x 3.4 x 2.8cm Left Ovary: 3.5 x 2.1 x 1.7cm Post CDS / Adnexa: wnl Presence of free fluid: No Presence of corpus luteal cyst: Yes in rt ovary measuring 2.1 x 1.9 x 1.7 cm Presence of subchorionic hematoma: Yes measuring 3.1 x 1.8 x 0.7cm anterior to the gestational sac GESTATION / SURVEY CRL: 0.62cm (6 weeks/3 days) -- however surrounding tissues makes it difficult to accurately measure the pole so this may not be accurate MSD: 1.17cm (5 weeks/2 days) Yolk Sac (normal less than 6mm): 2.9mm Heart Rate: 135 bpm Rhythm: Normal IUP: Viable IUP Date of LMP: 07/09/23 Beta HcG (if available): Pt reportedly had hCG levels drawn at [facility] 09/13/23 and they were 13,19 9 Single live IUP seen. Gest sac measuring 5 weeks 2 days, CRL measuring 6 weeks 3 days. Subchorionic h emorrhage seen. IMPRESSION: 1. Single, live IUP with a heart rate of 135 BPM. 2. Fetus measures 5 weeks 2 days based on gestational sac measurement, 6 weeks 3 days based on CRL m easurement, however may not be entirely accurate. Either way, this measures smaller than expected bas ed on LMP. The EDC based on summation of ultrasound parameters today is 05/10/2024. If repeat dating is necessary, recommend follow-up exam in 1 or 2 weeks. 3. Subchorionic hematoma, follow-up advised.
== END 2023-09-15 00:05 | disposition home or self-care (01) ==
LOC: EC 20:35
DX: O20.8 Other hemorrhage in early pregnancy (principal); Z79.82 Long term (current) use of aspirin; Z88.8 Allergy status to other drugs, medicaments and biological substances; Z3A.01 Less than 8 weeks gestation of pregnancy
CPT/HCPCS: 36415; 76801; 80053; 82150; 83690; 84702; 85025; 85610; 85730; 99284

== ENCOUNTER 2024-05-07 06:04 | Inpatient (IN) | payer OTHER ==
[2024-05-07] MEDS ORDERED: METHYLERGONOVINE 0.2 MG/ML 1 ML AMP IM PRN (06:21)
[2024-05-07] MEDS ORDERED: TERBUTALINE 1 MG/ML VIAL SQ PRN (06:21)
[2024-05-07] MEDS ORDERED: miSOPROStoL 200 MCG TAB RECTAL PRN (06:21)
[2024-05-07] MEDS ORDERED: TRANEXAMIC 1,000 MG/100ML-NACL 1,000 MG in EMPTY BAG 1 BAG IV PRN (06:21)
[2024-05-07] MEDS ORDERED: OXYTOCIN 10 UNIT/ML 1 ML VIAL IM PRN (06:21)
[2024-05-07] MEDS ORDERED: CARBOPROST TROMETHAMINE 250 MCG/ML 1 ML AMP IM PRN (06:21)
[2024-05-07] MEDS ORDERED: miSOPROStoL 200 MCG TAB PO PRN (06:21)
[2024-05-07 06:48] LABS: Basophils % (A) 0 %; Eosinophils # (A) 0.1 k/uL (0-0.7); Eosinophils % (A) 1 %; HCT 35.1 % (34.0-46.0); HGB 12.1 gm/dL (11.4-16.0); Lymphocytes % (A) 27 %; MCH 31.3 pg (25.0-35.0); MCHC 34.6 g/dL (31.0-37.0); MCV 90.6 fL (80.0-100.0); Mean Platelet Volume 9.6; Monocytes # (A) 0.5 k/uL (0-1.0); Monocytes % (A) 7 %; Neutrophils # (A) 4.4 k/uL (1.3-7.7); Neutrophils % (A) 61 %; Platelet Count 192 k/uL (150-450); RBC 3.87 m/uL (3.80-5.40); RDW 13.2 % (11.5-15.5); WBC 7.1 k/uL (3.8-10.6)
[2024-05-07] MEDS: LACTATED RINGERS 1,000 ML IV SCH (07:02)
[2024-05-07] MEDS: OXYTOCIN 30 UNITS/500 ML NS 30 UNIT in SALINE 1 500ML.BAG IV SCH (07:03)
--- NOTE | 2024-05-07 09:53 | P.HPOB ---
History of Present Illness H&P Date: 05/07/24 Chief Complaint: induction of labor Ms. Malik is a 28 year old at 40 weeks and 3 days with SOLEDAD of 05/04/24 (dated by 9wk US) who presents for induction of labor today. The has been complicated by a subchorionic hematoma in the first trimester that resolved as well as small for gestational age fetus in the 16th percentile. OB history: 2 FTVD, 2nd complicated by gestational diabetes labs: blood type B positive, antibody screen negative, rubella immune, HBsAg negative, HIV negative, HCv Ab negative, gonorrhea negative, chlamydia negative, 1 hour GTT wnl, GBS negative Past Medical History Past Medical History: No Reported History Additional Past Medical History / Comment(s): GDM- diet with second History of Any Multi-Drug Resistant Organisms: None Reported Past Surgical History: Cholecystectomy Past Anesthesia/Blood Transfusion Reactions: No Reported Reaction Past Psychological History: No Psychological Hx Reported Smoking Status: Never smoker Past Alcohol Use History: None Reported Past Drug Use History: None Reported - Past Family History Father History Unknown: Yes Family Medical History: No Reported History Additional Family Medical History / Comment(s): pt adopted Medications and Allergies Home Medications Medication Instructions Recorded Confirmed Type Vit No.179/Iron/Folic 1 each PO DAILY 04/06/22 05/07/24 History [ Tablet] Allergies Allergy/AdvReac Type Severity Reaction Status Date / Time methylphenidate Allergy Severe Anaphylaxis Verified 09/14/23 20:53 [[facility] Exam Vital Signs Temp Pulse Resp BP 05/07/24 06:18 97.0 F L 83 18 119/69 Intake and Output 05/06/24 05/07/24 05/07/24 22:59 06:59 14:59 Other: Weight 89.811 kg Focused physical exam is performed. This is a healthy-appearing in no apparent distress. Breathing is non-labored. Abdomen is gravid and non-tender. Cervical exam is 1 cm, 50 effacement, -3 station. Extremities non-tender and non-edematous. heart tones are Category I and tocometer is graphing irregular contractions. Results Result Diagrams: 05/07/24 06:30 Assessment and Plan Assessment: 28 year old at 40 weeks and 3 days here for induction of labor Plan: Admit, clear liquid diet, pitocin per protocol, plan for AROM and epidural when appropriate, continuous EFM and tocometer. Anticipate vaginal delivery.
[2024-05-07] MEDS: NALBUPHINE 10 MG/ML (10 ML MDV) IV PRN (15:45)
[2024-05-07] MEDS ORDERED: ROPIVACAINE 5 MG/ML 30 ML VIAL ONE (17:25)
[2024-05-07] MEDS ORDERED: SODIUM CHLORIDE 0.9% 250 ML BAG ONE (17:25)
[2024-05-07] MEDS ORDERED: fentaNYL (PF) 50 MCG/ML 5 ML AMP ONE (17:25)
[2024-05-07 19:03] VITALS: RESP 16
[2024-05-07] MEDS: LIDOCAINE 0.5% (PF) 5 MG/ML (50 ML SDV) SQ PRN (19:04)
[2024-05-07] MEDS ORDERED: diphenhydrAMINE 25 MG CAP PO PRN (19:14)
[2024-05-07] MEDS ORDERED: LANOLIN CREAM 1 GM TUBE TOPICAL PRN (19:14)
[2024-05-07] MEDS ORDERED: HYDROCORTISONE 2.5% RECTAL CREAM 30 GM TUBE RECTAL PRN (19:14)
[2024-05-07] MEDS ORDERED: diphenhydrAMINE 50 MG/ML 1 ML VIAL IVP PRN ×2 (19:14)
[2024-05-07] MEDS ORDERED: ZOLPIDEM 5 MG TAB PO PRN (19:14)
[2024-05-07] MEDS ORDERED: SIMETHICONE 80 MG CHEWABLE PO PRN (19:14)
[2024-05-07] MEDS ORDERED: diphenhydrAMINE 50 MG CAP PO PRN (19:14)
--- NOTE | 2024-05-07 19:14 | P.PROBDLV ---
Vaginal Delivery Note - . Vaginal Delivery Note: DATE OF SERVICE: 05/07/2024 PROCEDURE: Normal Vaginal Delivery ATTENDING: Dr. Naye Sylvester MD ESTIMATED BLOOD LOSS: 400 mL FINDINGS: VFI, Apgars 9/9. Weight 6 pounds and 3.5 ounces (2820 grams) PROCEDURE: Ms. Malik is a 28 year old at 40 weeks and 3 day presenting to labor and delivery for induction of labor for post-dates . The has been complicated by a small for gestational age fetus in the 16%ile. For further details, please review the admitting H&P. Pitocin was titrated per protocol. AROM was undertaken at 1250 revealing scant clear fluid. The patient received epidural anesthesia per her request. The patient was completely dilated at 1827. She pushed effectively over 10 minutes with Category I heart tones and brought the head to a crown. Over the next push, a viable female infant was delivered at 1849. The was placed on the maternal abdomen and bulb suctioned. The infant was noted to be spontaneously crying. Cord was clamped and cut after a 60-second delay. The infant was handed off to the pediatric team. Placenta was delivered whole with gentle cord traction at 1852. Oxytocin was started to facilitate uterine tone. Bimanual massage of the uterus was performed and some blood clots were evacuated. Uterine fundus was found to be firm and below the umbilicus upon fundal massage. Thorough examination of the cervix, vagina, periurethral area, and perineum revealed a second degree perineal laceration. This was infiltrated with lidocaine and repaired with 2-0 Vicryl in the usual fashion. The patient is stable and allowed to begin the bonding process.
[2024-05-07] MEDS: SENNOSIDES-DOCUSATE SODIUM 1 EACH TAB PO SCH (19:35)
[2024-05-08 03:55] LABS: Basophils % (A) 0 %; Eosinophils # (A) 0.2 k/uL (0-0.7); Eosinophils % (A) 1 %; HCT 32.4 % (34.0-46.0); HGB 10.9 gm/dL (11.4-16.0); Lymphocytes # (A) 1.6 k/uL (1.0-4.8); Lymphocytes % (A) 14 %; MCH 30.7 pg (25.0-35.0); MCHC 33.7 g/dL (31.0-37.0); MCV 91.3 fL (80.0-100.0); Mean Platelet Volume 10.1; Monocytes # (A) 0.7 k/uL (0-1.0); Monocytes % (A) 6 %; Neutrophils # (A) 8.9 k/uL (1.3-7.7); Neutrophils % (A) 78 %; Platelet Count 173 k/uL (150-450); RBC 3.55 m/uL (3.80-5.40); RDW 13.4 % (11.5-15.5); WBC 11.4 k/uL (3.8-10.6)
[2024-05-08] MEDS: IBUPROFEN 600 MG TAB PO PRN (05:05)
[2024-05-08] MEDS: BENZOCAINE/MENTHOL SPRAY 1 GM/SPRAY AEROSOL TOPICAL PRN (05:07)
--- NOTE | 2024-05-08 08:10 | P.DS ---
Providers Date of admission: 05/07/24 06:04 Expected date of discharge: 05/08/24 Attending physician: Naye Sylvester MD Primary care physician: Naye Sylvester MD Hospital Course: Ms. Malik is a 28 year old PPD#1 s/p normal vaginal delivery. The patient is doing well this morning and had no acute events overnight. She has no complaints this morning. She reports minimal lochia, passing flatus, voiding without difficulty, ambulating, and eating/drinking without nausea or vomiting. doing well at bedside. She denies chest pain, shortness of breathing, fevers, or chills overnight. She denies pain or swelling in the legs. restrictions are reviewed with the patient including pelvic rest for 6 weeks. The patient is encouraged to call the office if she experiences any heavy bleeding, foul-smelling discharge, breast complaints, or any if she has any other concerns. She will follow up in the office with << in 2 weeks>> for exam. She will go home with prescriptions for stool softeners and Motrin. She plans to use OTC Tylenol she already has at home as well. All questions are answered. Assessment: 28 year old now PPD#1 s/p normal vaginal delivery Patient Condition at Discharge: Good Plan - Discharge Summary New Discharge Prescriptions: New Docusate [Colace] 100 mg PO BID PRN 30 Days #60 capsule PRN Reason: Constipation Ibuprofen [Motrin] 600 mg PO Q6HR PRN #30 tab PRN Reason: Mild Pain (Scale 1 To 3) No Action Vit No.179/Iron/Folic [ Tablet] 1 each PO DAILY Discharge Medication List Vit No.179/Iron/Folic [ Tablet] 1 each PO DAILY 04/06/22 [History] Docusate [Colace] 100 mg PO BID PRN 30 Days #60 capsule 05/08/24 [Rx] Ibuprofen [Motrin] 600 mg PO Q6HR PRN #30 tab 05/08/24 [Rx] Follow up Appointment(s)/Referral(s): Naye Sylvester MD [Primary Care Provider] - 06/17/24 3:00 pm Activity/Diet/Wound Care/Special Instructions: Instructions 1. Do not begin any exercise program for 3 weeks. 2. Do not resume sexual relations for 6 weeks or longer if uncomfortable. 3. You may take tub baths or showers at any time. 4. You may use tampons if desired after 6 weeks. 5. Keep any areas repaired with stitches clean and dry. 6. If you are not nursing, wear a good fitting, supportive bra during the day and limit fluid intake for at least 1 week to prevent breast engorgement. 7. Call the office, , within the next week to make appointment for your 6 week checkup if it has not already been made. 8. Report any of the following occurrences to the doctor promptly: a. Heavy, excessive bleeding b. Chills, fever c. Burning or frequency of urination d. Pain or redness and breasts if nursing e. Increasing pain or swelling of vulva (stitches). In addition to the above instructions, the following additional should be followed: 1. No heavy lifting or straining (exercising) until after 6 week checkup. 2. Keep abdominal incision clean and dry: You may wear a dressing if more comfortable. 3. Make office appointment for 2 weeks after delivery date. Discharge Disposition: HOME SELF-CARE
[2024-05-08] MEDS: ACETAMINOPHEN TAB 325 MG TAB PO PRN (11:45)
[2024-05-08 16:48] VITALS: BP 116/75; PULSE 79; TEMP 98
== END 2024-05-08 19:30 | disposition home or self-care (01) | DRG 560 ==
LOC: 4FBP 06:04
PROVIDERS: ADMIT Obstetrics & Gynecology; ATTEND Obstetrics & Gynecology
PROC: 10907ZC Drainage of Amniotic Fluid, Therapeutic from Products of Conception, Via Natural or Artificial Opening (ICD-10-PCS; principal; 2024-05-07)
PROC: 0KQM0ZZ Repair Perineum Muscle, Open Approach (ICD-10-PCS; principal; 2024-05-07)
PROC: 3E033VJ Introduction of Other Hormone into Peripheral Vein, Percutaneous Approach (ICD-10-PCS; principal; 2024-05-07)
PROC: 10E0XZZ Delivery of Products of Conception, External Approach (ICD-10-PCS; principal; 2024-05-07)
DX: O48.0 Post-term pregnancy (principal); O36.5930 Maternal care for other known or suspected poor fetal growth, third trimester, not applicable or unspecified; O70.1 Second degree perineal laceration during delivery; Z86.32 Personal history of gestational diabetes; Z88.8 Allergy status to other drugs, medicaments and biological substances; Z3A.40 40 weeks gestation of pregnancy; Z37.0 Single live birth

== ENCOUNTER 2024-05-20 23:39 | Emergency (ER) | payer OTHER ==
--- NOTE | 2024-05-21 00:06 | ED ---
URI HPI - General Stated Complaint: Covid Time Seen by Provider: 05/21/24 00:05 Source: patient, RN notes reviewed Mode of arrival: ambulatory Limitations: no limitations - History of Present Illness Initial Comments: 29-year-old female presented to the ER with a chief complaint of cough and congestion. Patient states on Monday she started to experience cough, congestion, myalgias and fevers. She has been taking [id number] Tylenol, Mucinex and ibuprofen with mild relief. Patient denies any significant past medical history. Patient denies any difficulty breathing or wheezing. Patient's son recently tested positive for COVID-19. No other acute complaints. - Related Data Home Medications Medication Instructions Recorded Confirmed Vit No.179/Iron/Folic 1 each PO DAILY 04/06/22 05/07/24 [ Tablet] Previous Rx's Medication Instructions Recorded Docusate [Colace] 100 mg PO BID PRN 30 Days #60 05/08/24 capsule Ibuprofen [Motrin] 600 mg PO Q6HR PRN #30 tab 05/08/24 Allergies Allergy/AdvReac Type Severity Reaction Status Date / Time methylphenidate Allergy Severe Anaphylaxis Verified 09/14/23 20:53 [From [facility]] azithromycin Allergy Anaphylaxis Verified 05/21/24 00:40 Review of Systems ROS Statement: Those systems with pertinent positive or pertinent negative responses have been documented in the HPI. ROS Other: All systems not noted in ROS Statement are negative. Past Medical History Past Medical History: No Reported History Additional Past Medical History / Comment(s): GDM- diet with second History of Any Multi-Drug Resistant Organisms: None Reported Past Surgical History: Cholecystectomy Past Anesthesia/Blood Transfusion Reactions: No Reported Reaction Past Psychological History: No Psychological Hx Reported Smoking Status: Never smoker Past Alcohol Use History: None Reported Past Drug Use History: None Reported - Past Family History Father History Unknown: Yes Family Medical History: No Reported History Additional Family Medical History / Comment(s): pt adopted General Exam Limitations: no limitations General appearance: alert, in no apparent distress Eye exam: Present: normal appearance, PERRL, EOMI. Absent: scleral icterus, conjunctival injection, periorbital swelling ENT exam: Present: normal exam, normal oropharynx, mucous membranes moist, TM's normal bilaterally Neck exam: Present: normal inspection. Absent: tenderness, meningismus, lymphadenopathy Respiratory exam: Present: normal lung sounds bilaterally. Absent: respiratory distress, wheezes, rales, rhonchi, stridor Cardiovascular Exam: Present: regular rate, normal rhythm, normal heart sounds. Absent: systolic murmur, diastolic murmur, rubs, gallop, clicks Extremities exam: Present: normal inspection, full ROM, normal capillary refill. Absent: tenderness, pedal edema, joint swelling, calf tenderness Neurological exam: Present: alert, oriented X3, CN II-XII intact Skin exam: Present: warm, dry, intact, normal color. Absent: rash Course Vital Signs 05/21/24 00:31 Temperature 97.8 F Pulse Rate 86 Respiratory 17 Rate Blood Pressure 123/86 O2 Sat by Pulse 98 Oximetry Medical Decision Making - Medical Decision Making Was pt. sent in by a medical professional or institution (ALESSANDRA Mariano, VISUAL MERCHANDISING ASSISTANT, urgent care, hospital, or detention...) When possible be specific @ -No Did you speak to anyone other than the patient for history (EMS, parent, family, police, friend...)? What history was obtained from this source @ -No Did you review nursing and triage notes (agree or disagree)? Why? @ -I reviewed and agree with nursing and triage notes Were old charts reviewed (outside hosp., previous admission, EMS record, old EKG, old radiological studies, urgent care reports/EKG's, detention records)? Report findings @ -No old charts were reviewed Differential Diagnosis (chest pain, altered mental status, abdominal pain women, abdominal pain men, vaginal bleeding, weakness, fever, dyspnea, syncope, headache, dizziness, GI bleed, back pain, seizure, CVA, palpatations, mental health, musculoskeletal)? @ -COVID, RSV, influenza, viral sinusitis, pneumonia this list is not meant to be all-inclusive EKG interpreted by me (3pts min.). @ -None done X-rays interpreted by me (1pt min.). @ -None done CT interpreted by me (1pt min.). @ -None done U/S interpreted by me (1pt. min.). @ -None done What testing was considered but not performed or refused? (CT, X-rays, U/S, labs)? Why? @ -None What meds were considered but not given or refused? Why? @ -None Did you discuss the management of the patient with other professionals (professionals i.e. , PA, VISUAL MERCHANDISING ASSISTANT, lab, RT, psych nurse, social security assessor, investment sales assistant, teacher, medical officer, case briefer)? Give summary @ -No Was smoking cessation discussed for >3mins.? @ -No Was critical care preformed (if so, how long)? @ -No Were there social determinants of health that impacted care today? How? (Homelessness, low income, unemployed, alcoholism, drug addiction, transportation, low edu. Level, literacy, decrease access to med. care, [place] [facility], rehab)? @ -No Was there de-escalation of care discussed even if they declined (Discuss DNR or withdrawal of care, Hospice)? DNR status @ -No What co-morbidities impacted this encounter? (DM, HTN, Smoking, COPD, CAD, Cancer, CVA, ARF, Chemo, Hep., AIDS, mental health diagnosis, sleep apnea, morbid obesity)? @ -None Was patient admitted / discharged? Hospital course, mention meds given and route, prescriptions, significant lab abnormalities, going to OR and other pertinent info. @ -Discharge. 29-year-old female presented to ER with chief complaint of cough and congestion. History and physical exam completed. Vitals within normal limits. Patient in no signs of acute distress and nontoxic-appearing. Exam benign. COVID-positive. Influenza and RSV negative. Reevaluation, patient resting comfortably in exam room in no signs of acute distress. Results discussed with patient, all questions answered. Conservative treatment options discussed. Patient discharged in stable condition with follow-up to PCP. Patient verbally expressed understanding agreement care plan. Case discussed with ED attending, Dr. Taylor. Undiagnosed new problem with uncertain prognosis? @ -No Drug Therapy requiring intensive monitoring for toxicity (Heparin, Nitro, Insulin, Cardizem)? @ -No Were any procedures done? @ -No Diagnosis/symptom? @ -COVID-19/viral sinusitis Acute, or Chronic, or Acute on Chronic? @ -Acute Uncomplicated (without systemic symptoms) or Complicated (systemic symptoms)? @ -Uncomplicated Side effects of treatment? @ -No Exacerbation, Progression, or Severe Exacerbation? @ -No Poses a threat to life or bodily function? How? (Chest pain, [place], [place], pneumonia, PE, COPD, DKA, ARF, appy, cholecystitis, CVA, Diverticulitis, Homicidal, Suicidal, threat to staff... and all critical care pts) @ -No - Lab Data Lab Results 05/21/24 Range/Units 00:12 Influenza Type A (PCR) Not Detected (Not Detectd) Influenza Type B (PCR) Not Detected (Not Detectd) RSV (PCR) Not Detected (Not Detectd) SARS-CoV-2 (PCR) Detected A (Not Detectd) Disposition Clinical Impression: Acute viral sinusitis, COVID Disposition: HOME SELF-CARE Condition: Stable Instructions (If sedation given, give patient instructions): COVID-19 (Coronavirus Disease 2019) (ED) Additional Instructions: You may take [id number]-crudzab Tylenol and Motrin for symptom control. Follow-up with PCP. Return to the ER for any new or worsening concerns. Is patient prescribed a controlled substance at d/c from ED?: No Referrals: Marissa Hinkle DO [Primary Care Provider] - 1-2 days Time of Disposition: 01:19
[2024-05-21 00:38] VITALS: BP 123/86; PULSE 86; RESP 17; TEMP 97.8
== END 2024-05-21 01:35 | disposition home or self-care (01) ==
LOC: EC 23:39
CPT/HCPCS: 87636; 99283